=== PATIENT | female | born 1975 | race Caucasian/White ===

== ENCOUNTER → 2017-04-08 | Outpatient (CLI) | payer BC ==
--- NOTE | 2017-04-08 23:14 | MR ---
EXAMINATION TYPE: MR brain wo/w con DATE OF EXAM: 04/08/2017 COMPARISON: 08/31/2013 HISTORY: Follow up from previous abnormal MRI 08/2013, Headaches, new onset nystagmus, hyperflexia TECHNIQUE: Multiplanar, multisequence images of the brain and brainstem is performed without and with IV contras t, utilizing 15 mL intravenous MultiHance . FINDINGS: Ventricles of normal size. There is no mass effect nor midline shift. There is no sign of i ntracranial hemorrhage. Brainstem appears normal. Corpus callosum appears normal. Sella turcica is no rmal. There is no evidence of demyelinating disease. There is no pathologic enhancement. There is min imal mucosal thickening in the left maxillary sinus. IMPRESSION: Minimal left maxillary sinusitis similar to old exam. No evidence of demyelinating diseas e. Negative MR scan of the brain.
== END | disposition home or self-care (01) ==
LOC: RADMRIMAIN 18:26
PROVIDERS: ATTEND Psychiatry & Neurology Neurology
DX: H55.89 Other irregular eye movements (principal)
CPT/HCPCS: 70553; A9577

== ENCOUNTER → 2017-05-08 | Outpatient (CLI) | payer BC ==
--- NOTE | 2017-05-16 11:32 | ENG ---
ELECTRONYSTAGMOGRAM REPORT INDICATION: A 42-year-old female with dizziness of a chronic, longstanding nature, getting worse, occurring at least twice a week and lasts up to a few hours. Dizziness can be precipitated by looking up or head back position, turning the head left to right, bending over or head down position, moving the head, when in the car or driving or in large crowds. Has tinnitus in the right ear of a steady nature and pain in both ears intermittently. Denies difficulty with hearing. VNG FINDINGS: Saccade shows intact peak velocities, accuracies and latencies. Gaze with fixation shows no nystagmus in any directions of gaze. Tracking shows no breakups. Opticokinetic nystagmus shows no asymmetries. Static position testing in six different positions with eyes opened and with vision denied shows no nystagmus in any of those positions. [place]-Hallpike maneuvers are negative bilaterally. Caloric testing shows 0 unilateral calorie weakness. Directional preponderance 25% right ear, index is negative. IMPRESSION: Unremarkable VNG study. MMODL / IJN: [id number] /
== END | disposition home or self-care (01) ==
LOC: NEUROMAIN 09:02
PROVIDERS: ATTEND Psychiatry & Neurology Neurology
DX: H55.00 Unspecified nystagmus (principal)
CPT/HCPCS: 92537; 92540

== ENCOUNTER → 2018-09-05 | Day surgery (SDC) | payer BC ==
[2018-09-04 09:51] VITALS: BMI 25.0
[~2018-09-05] MED LIST: LACTATED RINGERS 1,000 ML IV SCH; LIDOCAINE 1% 20 ML VIAL (10MG/ML) FOR IV START INTRADERMA PRN; LIDOCAINE 1% INJ 10MG/ML (20 ML MDV) ONE; MIDAZOLAM 2 MG/2 ML VIAL ONE; PROPOFOL 10 MG/ML 20 ML VIAL IV ONE; fentaNYL (PF) 50 MCG/ML 2 ML AMP ONE
[2018-09-05 09:28] VITALS: RESP 16; TEMP 98.1
--- NOTE | 2018-09-05 10:03 | P.PCN ---
Date of Procedure: 09/05/18 Procedure(s) Performed: Brief history: Patient is a pleasant 43-year-old white female, scheduled for an elective upper endoscopy as well as colonoscopy as a part of evaluation of long-standing history of GERD, lower abdominal pain and chronic intermittent diarrhea for the last several years duration. Procedure performed: Esophagogastroduodenoscopy with biopsy Colonoscopy with biopsy Preoperative diagnosis: GERD Lower abdominal pain and chronic intermittent diarrhea Anesthesia: MAC Procedure: After informed consent was obtained from the patient was brought into the endoscopy unit and IV sedation was administered by anesthesia under continuous monitoring. Initially upper endoscopy was done. The Olympus GF 160 video endoscope was inserted inserted into the mouth and esophagus intubated without any difficulty and was gradually advanced into the stomach and duodenum and carefully examined. The bulb and second part of the duodenum appeared normal. Biopsies were done from the duodenum to rule out celiac disease. The scope was then withdrawn into the stomach adequately insufflated with air and upon careful examination the antrum had scattered erosions and biopsies were done from this area. The body, cardia and fundus appeared normal. The scope was then withdrawn into the esophagus. The GE junction was located at 40 cm to the incisors. small sliding Hiatal hernia noted. It appeared regular with no erythema erosions or ulcerations. Rest of the esophagus appeared normal. Patient tolerated the procedure well. At this time the patient continued to remain sedation. Initial digital rectal examination was normal. Olympus CF 160 video colonoscope was then inserted into the rectum and gradually advanced to the cecum without any difficulty. Careful examination was performed as the scope was gradually being withdrawn. The prep was excellent. The cecum, ascending colon, transverse colon, descending colon, sigmoid colon and rectum appeared normal. Retroflexion was performed in the rectum and no lesions were noted. and biopsies were done from the ascending and descending colon to rule out microscopic/collagenous colitis. Patient tolerated the procedure well. Impression: 1. Upper endoscopy revealed antral erosive gastritis and small hiatal hernia. 2. Colonoscopy was essentially within normal limits with no evidence of colitis or colorectal neoplasia. Recommendations: Findings of this examination were discussed with the patient as well as her family. She was advised to follow with the biopsy results. She'll be seen in office in 4 weeks
[2018-09-05 10:22] VITALS: BP 119/62; PULSE 77
== END ==
LOC: ORWHC2ENDO 09:01
PROVIDERS: ATTEND Internal Medicine Gastroenterology
DX: K29.50 Unspecified chronic gastritis without bleeding (principal); K25.9 Gastric ulcer, unspecified as acute or chronic, without hemorrhage or perforation; K44.9 Diaphragmatic hernia without obstruction or gangrene; K21.9 Gastro-esophageal reflux disease without esophagitis; K58.9 Irritable bowel syndrome, unspecified; F41.9 Anxiety disorder, unspecified; G43.909 Migraine, unspecified, not intractable, without status migrainosus; J45.909 Unspecified asthma, uncomplicated; Z79.51 Long term (current) use of inhaled steroids; Z79.899 Other long term (current) drug therapy; Z91.030 Bee allergy status; Z87.891 Personal history of nicotine dependence
CPT/HCPCS: 81025; 88305; 45380; 43239; J2250; J2001; J3010; J2704

== ENCOUNTER → 2018-09-08 | Outpatient (CLI) | payer BC ==
--- NOTE | 2018-09-08 09:47 | US ---
EXAMINATION TYPE: US abdomen complete DATE OF EXAM: 09/08/2018 COMPARISON: NONE CLINICAL HISTORY: R10.9 Abdominal Pain. EXAM MEASUREMENTS: Liver Length: 12.1 cm Gallbladder Wall: 0.2 cm CBD: 0.4 cm Spleen: 10.9 cm Right Kidney: 11.8 x 4.7 x 4.9 cm Left Kidney: 11.0 x 4.8 x 4.6 cm Pancreas: wnl Liver: homogeneous Gallbladder: wnl Evidence for sonographic Prabhakar's sign: No CBD: wnl Spleen: wnl Right Kidney: No hydronephrosis or masses seen Left Kidney: No hydronephrosis or masses seen Upper IVC: wnl Abd Aorta: wnl The liver is homogenous. The intrahepatic portion of the IVC and proximal abdominal aorta are within normal limits. There is no evidence of cholelithiasis. Common bile duct is unremarkable. The visu alized portions of the pancreas are homogenous. The spleen is unremarkable. Kidneys are symmetric a nd free of hydronephrosis. No renal lesions are seen. IMPRESSION: Unremarkable abdominal ultrasound. No evidence of cholelithiasis or acute cholecystitis. No hydronephrosis or nephrolithiasis.
== END ==
LOC: RADUSWWP 08:57
PROVIDERS: ATTEND Family Medicine
DX: R10.9 Unspecified abdominal pain (principal)
CPT/HCPCS: 76700

== ENCOUNTER → 2018-11-08 | Outpatient (CLI) | payer BC ==
--- NOTE | 2018-11-08 12:13 | NM ---
EXAMINATION TYPE: NM hepatobiliary w EF DATE OF EXAM: 11/08/2018 COMPARISON: Complete abdominal ultrasound September 08, 2018 HISTORY: Epigastric pain per order. Right upper quadrant pain with diminished appetite heartburn and nausea per patient. TECHNIQUE: After the intravenous administration of 5.1 mCi Tc 99m Mebrofenin hepatobiliary scintigrap hy is performed. Immediate images post injection. FINDINGS: There is satisfactory initial accumulation of tracer by the liver. The gallbladder is visualized wit hin 25 minutes. The small bowel activity is not well visualized even after 60 minutes. At one hour 8 ounces of oral ensure plus is given to mimic CCK and gallbladder ejection fraction is calculated at 81 %, not deviated from the normal range. Therefore there is no scintigraphic evidence of cystic or common bile duct obstruction to suggest acute cholecystitis . IMPRESSION: Ejection fraction is 81%, some consider this abnormal or a hyperkinetic response.
== END ==
LOC: RADNMMAIN 09:39
PROVIDERS: ATTEND Family Medicine
DX: R10.13 Epigastric pain (principal)
CPT/HCPCS: 78226; A9537

== ENCOUNTER → 2019-06-11 | Outpatient (CLI) | payer BC ==
--- NOTE | 2019-06-12 08:31 | XR ---
EXAMINATION TYPE: XR chest 2V DATE OF EXAM: 06/11/2019 COMPARISON: 09/08/2014 INDICATION: R05 TECHNIQUE: Frontal and lateral views of the chest are obtained. FINDINGS: The heart size is normal. The pulmonary vasculature is normal. The lungs are clear. IMPRESSION: 1. No acute pulmonary process.
== END | disposition home or self-care (01) ==
LOC: RADXRMAIN 17:43
PROVIDERS: ATTEND Family Medicine
DX: R05 Cough (principal)
CPT/HCPCS: 71046

== ENCOUNTER → 2020-02-10 | Outpatient (CLI) | payer BC ==
[2020-02-10 09:51] LABS: Basophils % (A) 1 %; Eosinophils # (A) 0.3 k/uL (0-0.7); Eosinophils % (A) 6 %; HCT 43.3 % (34.0-46.0); HGB 13.8 gm/dL (11.4-16.0); Lymphocytes # (A) 1.8 k/uL (1.0-4.8); Lymphocytes % (A) 31 %; MCH 30.1 pg (25.0-35.0); MCHC 31.8 g/dL (31.0-37.0); MCV 94.8 fL (80.0-100.0); Mean Platelet Volume 7.9; Monocytes # (A) 0.3 k/uL (0-1.0); Monocytes % (A) 5 %; Neutrophils # (A) 3.2 k/uL (1.3-7.7); Neutrophils % (A) 56 %; Platelet Count 221 k/uL (150-450); RBC 4.56 m/uL (3.80-5.40); WBC 5.8 k/uL (3.8-10.6)
[2020-02-10 17:18] LABS: ALT 29 U/L (8-44); AST 37 U/L (13-35); African American GFR (CKD) 129.4 (60.0-200.0); Alkaline Phosphatase 85 U/L (41-126); BUN/Creat Ratio 21.67 Ratio (12.00-20.00); C Reactive Protein <0.4 mg/dL (0.0-0.8); Calcium 9.6 mg/dL (8.7-10.3); Carbon Dioxide 28.4 mmol/L (21.6-31.8); Chloride 105 mmol/L (96-109); Glucose 93 mg/dL (70-110); Non-African American GFR(CKD) 111.6 (60.0-200.0); Potassium 4.6 mmol/L (3.5-5.5); Sodium 141 mmol/L (135-145); Total Bilirubin 0.7 mg/dL (0.3-1.2); Total Protein 6.4 g/dL (6.2-8.2)
== END | disposition home or self-care (01) ==
LOC: LABWHC1 09:27
PROVIDERS: ATTEND Family Medicine
DX: M79.7 Fibromyalgia (principal); R53.83 Other fatigue; E55.9 Vitamin D deficiency, unspecified
CPT/HCPCS: 36415; 80053; 82306; 84443; 85025; 86140

== ENCOUNTER 2021-02-26 10:19 | Emergency (ER) | payer BC ==
[2021-02-26 10:26] VITALS: RESP 18; TEMP 98.5
[2021-02-26] MEDS ORDERED: ONDANSETRON 4 MG/2 ML VIAL IVP STA (10:43)
[2021-02-26] MEDS ORDERED: SODIUM CHLORIDE 0.9% 1,000 ML IV STA (10:43)
[2021-02-26] MEDS ORDERED: KETOROLAC 15 MG/ML 1 ML VIAL IVP STA (10:43)
--- NOTE | 2021-02-26 11:01 | ED ---
General Adult HPI - General Chief complaint: Abdominal Pain Stated complaint: abd pain Time Seen by Provider: 02/26/21 10:33 Source: patient Mode of arrival: ambulatory Limitations: no limitations - History of Present Illness Initial comments: 45-year-old female with a mask medical history of asthma, hypertension, GERD presents to the emergency room for a chief complaint of abdominal pain. Patient reports yesterday she started to notice some right side pain last night. States it improved throughout the night but then this morning she noticed it as well. States it wraps around to her right mid back as well. Patient does admit to nausea but denies vomiting. Patient went to urgent care was told there was some blood in her urine and to come to the ER.Patient has no other complaints at this time including shortness of breath, chest pain, nausea or vomiting, headache, or visual changes. - Related Data Home Medications Medication Instructions Recorded Confirmed Montelukast [Singulair] 10 mg PO DAILY 03/22/02/26/21 DULoxetine HCL [Cymbalta] 60 mg PO DAILY 09/04/18 02/26/21 Albuterol Sulfate [Proair Hfa] 2 puff INHALATION RT-Q6H PRN 02/26/21 02/26/21 Budesonide [Pulmicort Flexhaler] 1 puff INHALATION RT-BID 02/26/21 02/26/21 Previous Rx's Medication Instructions Recorded HYDROcodone/APAP 5-325MG [Greenback 1 tab PO Q6HR PRN #10 tab 02/26/21 5-325] Ibuprofen [Motrin] 600 mg PO Q6HR PRN #20 tab 02/26/21 Ondansetron [Zofran ODT] 4 mg PO Q8HR PRN #15 tab 02/26/21 Tamsulosin [Flomax] 0.4 mg PO DAILY #20 cap 02/26/21 Allergies Allergy/AdvReac Type Severity Reaction Status Date / Time venom-honey bee Allergy Anaphylaxis Verified 02/26/21 12:04 [bee venom (honey bee)] Review of Systems ROS Statement: Those systems with pertinent positive or pertinent negative responses have been documented in the HPI. ROS Other: All systems not noted in ROS Statement are negative. Past Medical History Past Medical History: Asthma, GERD/Reflux, Hypertension Additional Past Medical History / Comment(s): MIGRAINE HEADACHES, History of Any Multi-Drug Resistant Organisms: None Reported Past Surgical History: Hernia Repair Additional Past Surgical History / Comment(s): LAPAROSCOPIC EXAM, UMBILICAL HERNIA REPIR Past Anesthesia/Blood Transfusion Reactions: No Reported Reaction Smoking Status: Current some day smoker Past Alcohol Use History: Rare Past Drug Use History: Marijuana - Past Family History Mother Family Medical History: No Reported History General Exam Limitations: no limitations General appearance: in no apparent distress Head exam: Present: atraumatic, normocephalic, normal inspection Eye exam: Present: normal appearance, PERRL, EOMI. Absent: scleral icterus, conjunctival injection, periorbital swelling ENT exam: Present: normal exam, mucous membranes moist Neck exam: Present: normal inspection. Absent: tenderness, meningismus, lymphadenopathy Respiratory exam: Present: normal lung sounds bilaterally. Absent: respiratory distress, wheezes, rales, rhonchi, stridor Cardiovascular Exam: Present: regular rate, normal rhythm, normal heart sounds. Absent: systolic murmur, diastolic murmur, rubs, gallop, clicks GI/Abdominal exam: Present: soft, tenderness (RUQ tenderness, no significance lo wer abdominal tenderness), normal bowel sounds. Absent: distended, guarding, rebound, rigid Back exam: Absent: CVA tenderness (R), CVA tenderness (L) Course Vital Signs 02/26/21 10:23 Temperature 98.5 F Pulse Rate 73 Respiratory 18 Rate Blood Pressure 116/74 O2 Sat by Pulse 99 Oximetry Medical Decision Making - Medical Decision Making Vitals are stable. Patient is well-appearing. CBC CMP unremarkable. Urinalysis does show red blood cells. Given patient had right upper quadrant pain radiating to the right flank gallbladder ultrasound was obtained. This showed a new moderate right-sided hydro-. No shadowing mobile gallstones or evidence for acute cholecystitis. There is new mild to moderate extrahepatic biliary dilation of uncertain significance, consider nonemergent follow-up. Patient was notified of this. CT abdomen and pelvis shows a 7 mm calculus proximal right ureter causing mild to moderate right-sided hydronephrosis. I did discuss this case with Dr. spencer. Given patient is comfortable at this time she'll be discharged home however recommend close follow-up given size of stone and if she is not able to tolerate the pain he recommends she come back for admission. - Lab Data Result diagrams: 02/26/21 10:58 02/26/21 10:58 Lab Results 02/26/21 02/26/21 02/26/21 Range/Units 10:58 10:58 10:58 WBC 7.4 (3.8-10.6) k/uL RBC 4.56 (3.80-5.40) m/uL Hgb 14.6 (11.4-16.0) gm/dL Hct 41.6 (34.0-46.0) % MCV 91.2 (80.0-100.0) fL MCH 32.1 (25.0-35.0) pg MCHC 35.2 (31.0-37.0) g/dL RDW 12.0 (11.5-15.5) % Plt Count 213 (150-450) k/uL MPV 7.6 Neutrophils % 71 % Lymphocytes % 20 % Monocytes % 4 % Eosinophils % 3 % Basophils % 0 % Neutrophils # 5.3 (1.3-7.7) k/uL Lymphocytes # 1.5 (1.0-4.8) k/uL Monocytes # 0.3 (0-1.0) k/uL Eosinophils # 0.2 (0-0.7) k/uL Basophils # 0.0 (0-0.2) k/uL Sodium 141 (137-145) mmol/L Potassium 4.3 (3.5-5.1) mmol/L Chloride 107 (98-107) mmol/L Carbon Dioxide 29 (22-30) mmol/L Anion Gap 5 mmol/L BUN 13 (7-17) mg/dL Creatinine 0.54 (0.52-1.04) mg/dL Est GFR (CKD-EPI)AfAm >90 (>60 ml/min/1.73 sqM) Est GFR (CKD-EPI)NonAf >90 (>60 ml/min/1.73 sqM) Glucose 95 (74-99) mg/dL Plasma Lactic Acid Cem (0.7-2.0) mmol/L Calcium 9.5 (8.4-10.2) mg/dL Total Bilirubin 0.7 (0.2-1.3) mg/dL AST 31 (14-36) U/L ALT 21 (4-34) U/L Alkaline Phosphatase 64 (38-126) U/L Total Protein 6.8 (6.3-8.2) g/dL Albumin 4.4 (3.5-5.0) g/dL Amylase 44 (30-110) U/L Lipase 49 (23-300) U/L Urine Color Yellow Urine Appearance Clear (Clear) Urine pH 7.0 (5.0-8.0) Ur Specific [place] 1.023 (1.001-1.035) Urine Protein Trace H (Negative) Urine Glucose (UA) Negative (Negative) Urine Ketones Negative (Negative) Urine Blood Small H (Negative) Urine Nitrite Negative (Negative) Urine Bilirubin Negative (Negative) Urine Urobilinogen <2.0 (<2.0) mg/dL Ur Leukocyte Esterase Negative (Negative) Urine RBC 36 H (0-5) /hpf Urine WBC 2 (0-5) /hpf Ur Squamous Epith Cells 1 (0-4) /hpf Urine Bacteria Rare H (None) /hpf Urine Mucus Moderate H (None) /hpf 02/26/ Range/Units 10:58 WBC (3.8-10.6) k/uL RBC (3.80-5.40) m/uL Hgb (11.4-16.0) gm/dL Hct (34.0-46.0) % MCV (80.0-100.0) fL MCH (25.0-35.0) pg MCHC (31.0-37.0) g/dL RDW (11.5-15.5) % Plt Count (150-450) k/uL MPV Neutrophils % % Lymphocytes % % Monocytes % % Eosinophils % % Basophils % % Neutrophils # (1.3-7.7) k/uL Lymphocytes # (1.0-4.8) k/uL Monocytes # (0-1.0) k/uL Eosinophils # (0-0.7) k/uL Basophils # (0-0.2) k/uL Sodium (137-145) mmol/L Potassium (3.5-5.1) mmol/L Chloride (98-107) mmol/L Carbon Dioxide (22-30) mmol/L Anion Gap mmol/L BUN (7-17) mg/dL Creatinine (0.52-1.04) mg/dL Est GFR (CKD-EPI)AfAm (>60 ml/min/1.73 sqM) Est GFR (CKD-EPI)NonAf (>60 ml/min/1.73 sqM) Glucose (74-99) mg/dL Plasma Lactic Acid Cem 0.7 (0.7-2.0) mmol/L Calcium (8.4-10.2) mg/dL Total Bilirubin (0.2-1.3) mg/dL AST (14-36) U/L ALT (4-34) U/L Alkaline Phosphatase (38-126) U/L Total Protein (6.3-8.2) g/dL Albumin (3.5-5.0) g/dL Amylase (30-110) U/L Lipase (23-300) U/L Urine Color Urine Appearance (Clear) Urine pH (5.0-8.0) Ur Specific [place] (1.001-1.035) Urine Protein (Negative) Urine Glucose (UA) (Negative) Urine Ketones (Negative) Urine Blood (Negative) Urine Nitrite (Negative) Urine Bilirubin (Negative) Urine Urobilinogen (<2.0) mg/dL Ur Leukocyte Esterase (Negative) Urine RBC (0-5) /hpf Urine WBC (0-5) /hpf Ur Squamous Epith Cells (0-4) /hpf Urine Bacteria (None) /hpf Urine Mucus (None) /hpf Disposition Clinical Impression: Kidney stone, Hematuria, Dilation of biliary tract Disposition: HOME SELF-CARE Condition: Good Instructions (If sedation given, give patient instructions): Kidney Stones (ED) Additional Instructions: Please take Motrin for pain. If pain is severe take Greenback but do not drive or operate machinery while taking this. Take Zofran as needed for nausea. Take Flomax daily. Follow up with urology. If pain is intolerable at home or you are having worsening symptoms return to the emergency room. Also, please follow-up with your doctor to review ultrasound results. Prescriptions: Tamsulosin [Flomax] 0.4 mg PO DAILY #20 cap Ibuprofen [Motrin] 600 mg PO Q6HR PRN #20 tab PRN Reason: Pain HYDROcodone/APAP 5-325MG [Green[place] 5-325] 1 tab PO Q6HR PRN #10 tab PRN Reason: Pain Ondansetron [Zofran ODT] 4 mg PO Q8HR PRN #15 tab PRN Reason: Nausea Is patient prescribed a controlled substance at d/c from ED?: Yes When asked, does pt state using other controlled substances?: No If prescribed controlled substance>3 days was MAPS reviewed?: Prescribed <3 Days If opioid is for acute pain is fill amount 7 days or less?: Yes If Rx opioid, was Start Talking consent form obtained?: Yes Referrals: Reji Chu MD [Primary Care Provider] - 1-2 days Clifford Spencer MD [STAFF PHYSICIAN] - 1-2 days Time of Disposition: 13:33
[2021-02-26 11:08] LABS: Basophils % (A) 0 %; Eosinophils # (A) 0.2 k/uL (0-0.7); Eosinophils % (A) 3 %; HCT 41.6 % (34.0-46.0); HGB 14.6 gm/dL (11.4-16.0); Lymphocytes # (A) 1.5 k/uL (1.0-4.8); Lymphocytes % (A) 20 %; MCH 32.1 pg (25.0-35.0); MCHC 35.2 g/dL (31.0-37.0); MCV 91.2 fL (80.0-100.0); Mean Platelet Volume 7.6; Monocytes # (A) 0.3 k/uL (0-1.0); Monocytes % (A) 4 %; Neutrophils # (A) 5.3 k/uL (1.3-7.7); Neutrophils % (A) 71 %; Platelet Count 213 k/uL (150-450); RBC 4.56 m/uL (3.80-5.40); WBC 7.4 k/uL (3.8-10.6)
[2021-02-26 11:20] LABS: ALT 21 U/L (4-34); AST 31 U/L (14-36); African American GFR (CKD) >90 (>60 ml/min/1.73 sqM); Albumin 4.4 g/dL (3.5-5.0); Alkaline Phosphatase 64 U/L (38-126); Amylase 44 U/L (30-110); Anion Gap 5 mmol/L; Blood Urea Nitrogen 13 mg/dL (7-17); Calcium 9.5 mg/dL (8.4-10.2); Carbon Dioxide 29 mmol/L (22-30); Chloride 107 mmol/L (98-107); Glucose 95 mg/dL (74-99); Lipase 49 U/L (23-300); Non-African American GFR(CKD) >90 (>60 ml/min/1.73 sqM); Potassium 4.3 mmol/L (3.5-5.1); Sodium 141 mmol/L (137-145); Total Bilirubin 0.7 mg/dL (0.2-1.3); Total Protein 6.8 g/dL (6.3-8.2)
[2021-02-26 11:30] LABS: Appearance,Urine Clear (Clear); Bacteria,Urine Rare /hpf; Bilirubin,Urine Negative (Negative); Blood,Urine Small (Negative); Color,Urine Yellow; Glucose,Urine (UA) Negative (Negative); Ketones,Urine Negative (Negative); Leukocyte Esterase,Urine Negative (Negative); Mucus,Urine Moderate /hpf; Nitrite,Urine Negative (Negative); Protein,Urine Trace (Negative); RBC,Urine 36 /hpf (0-5); Specific Gravity,Urine 1.023 (1.001-1.035); Squamous Epithelial Cell,Urine 1 /hpf (0-4); Urobilinogen,Urine <2.0 mg/dL (<2.0); WBC,Urine 2 /hpf (0-5)
--- NOTE | 2021-02-26 11:58 | US ---
EXAMINATION TYPE: US gallbladder DATE OF EXAM: 02/26/2021 COMPARISON: Complete abdominal ultrasound September 08, 2018 CLINICAL HISTORY: ruq pain. Abdomen pain x 1 day, N/V EXAM MEASUREMENTS: Liver Length: 15.2 cm Gallbladder Wall: 0.2 cm CBD: 0.9 cm Right Kidney: 10.5 x 5.7 x 5.7 cm Pancreas: wnl Liver: wnl Gallbladder: wnl Evidence for sonographic Prabhakar's sign: no CBD: dilated Right Kidney: Moderate hydronephrosis IMPRESSION: New moderate right-sided hydronephrosis may warrant further clinical workup. No shadowing mobile gallstones ultrasound evidence for acute cholecystitis. New Mild to moderate extra hepatic bi liary dilatation of uncertain significance given lack of significant new central intrahepatic biliary dilatation or pancreatic ductal dilatation on images saved. Consider nonemergent follow-up.
--- NOTE | 2021-02-26 12:37 | CT ---
EXAMINATION TYPE: CT abdomen pelvis wo con DATE OF EXAM: 02/26/2021 HISTORY: right flank pain, microscopic hematuria CT DLP: 570.6 mGycm. Automated Exposure Control for Dose Reduction was Utilized. TECHNIQUE: CT scan of the abdomen and pelvis is performed without oral or IV contrast. COMPARISON: NONE FINDINGS: Within the limitations of a non-contrast study, the following observations are made. LUNG BASES: No significant abnormality is appreciated. LIVER/GB: No significant abnormality is appreciated. PANCREAS: No significant abnormality is seen. SPLEEN: No significant abnormality is seen. ADRENALS: No significant abnormality is seen. KIDNEYS: No left-sided renal calculi or hydronephrosis. There is single 2 mm nonobstructing calculus right kidney midpole level coronal image 53. There is [id number] right-sided hydronephrosis due to obstructing 7 mm calculus proximal right ureter coronal image 42. Scattered right-sided pelvic ph leboliths BOWEL: Low-lying cecum into right pelvis. No suspicious small or large bowel dilatation. Mild wall th ickening at level of hepatic flexure GENITAL ORGANS: Uterus somewhat small or atrophic. LYMPH NODES: No greater than 1cm abdominal or pelvic lymph nodes are appreciated. OSSEOUS STRUCTURES: Mild to moderate disc space narrowing lumbosacral junction. Mild multilevel anter ior spurring. OTHER: No significant additional abnormality is seen. IMPRESSION: There is 7 mm calculus proximal right ureter causing [id number] right-sided hydrone phrosis.
[2021-02-26] MEDS ORDERED: MORPHINE SULFATE 4 MG/ML SYRINGE IVP STA (13:28)
[2021-02-26 14:09] VITALS: BP 105/74; PULSE 79
== END 2021-02-26 14:04 | disposition home or self-care (01) ==
LOC: EC 10:19
DX: N13.2 Hydronephrosis with renal and ureteral calculous obstruction (principal); K83.8 Other specified diseases of biliary tract; I10 Essential (primary) hypertension; J45.909 Unspecified asthma, uncomplicated; K21.9 Gastro-esophageal reflux disease without esophagitis; G43.909 Migraine, unspecified, not intractable, without status migrainosus; F12.90 Cannabis use, unspecified, uncomplicated; F17.200 Nicotine dependence, unspecified, uncomplicated; Z79.1 Long term (current) use of non-steroidal anti-inflammatories (NSAID); Z79.51 Long term (current) use of inhaled steroids; Z79.899 Other long term (current) drug therapy
CPT/HCPCS: 36415; 80053; 82150; 83605; 83690; 85025; 81001; 76705; 74176; 99284; 96374; 96375 ×2; 96361; J2270; J2405; J1885

== ENCOUNTER → 2021-03-09 | Outpatient (CLI) | payer BC ==
--- NOTE | 2021-03-09 19:56 | XR ---
EXAMINATION TYPE: XR KUB DATE OF EXAM: 03/09/2021 Comparison: CT 02/26/2021 Clinical History: 45-year-old female N20.1 calculus Findings: Nonobstructive bowel gas pattern. Scattered mild stool burden. There is a 5 mm calcification in the r ight mid abdomen at the level of the mid ureter. Pelvic phleboliths. Impression: A 5 mm mid right ureteral calculus similar to findings on the 02/26/2021 CT.
== END | disposition home or self-care (01) ==
LOC: RADXRMAIN 12:01
PROVIDERS: ATTEND Urology
DX: N20.1 Calculus of ureter (principal)
CPT/HCPCS: 74018

== ENCOUNTER → 2021-03-23 | Outpatient (CLI) | payer BC ==
--- NOTE | 2021-03-23 15:00 | XR ---
EXAMINATION TYPE: XR KUB DATE OF EXAM: 03/23/2021 COMPARISON: 03/09/2021 INDICATION: Renal calculus right-sided pain x2 weeks TECHNIQUE: Single view abdomen frontal projection FINDINGS: There is a normal bowel gas pattern. Mild fecal debris is within the colon. Psoas margins are normal. No organomegaly is present. Previous right abdomen calcification is not identified currently. Phleboliths are within the right he mipelvis IMPRESSION: 1. Nonspecific abdomen.
== END | disposition home or self-care (01) ==
LOC: RADXRMAIN 14:26
PROVIDERS: ATTEND Urology
DX: R10.9 Unspecified abdominal pain (principal)
CPT/HCPCS: 74018

== ENCOUNTER → 2022-08-04 | Outpatient (CLI) | payer BC ==
[2022-08-04 18:33] LABS: Hepatitis A Antibody IgM Nonreactive (Nonreactive); Hepatitis B Surface Antigen Nonreactive (Nonreactive)
[2022-08-04 18:34] LABS: Hepatitis C IgG Antibody Nonreactive (Nonreactive)
[2022-08-04 18:40] LABS: Ceruloplasmin 23.5 mg/dL (20.0-60.0)
[2022-08-04 22:19] LABS: Cryptosporidium Antigen Negative (Negative)
[2022-08-04 23:02] LABS: ALT 81 U/L (8-44); AST 50 U/L (13-35); Albumin 4.5 g/dL (3.8-4.9); Albumin/Globulin Ratio 2.02 (1.60-3.17); Alkaline Phosphatase 108 U/L (41-126); Bilirubin, Conjugated <0.20 mg/dL (0.20-0.40); Ferritin 55.4 ng/mL (10.0-291.0); Globulin 2.2 g/dL (1.6-3.3); Iron 83 ug/dL (50-170); Total Iron Binding Capacity 367 ug/dL (228-460); Total Protein 6.7 g/dL (6.2-8.2)
[2022-08-06 12:40] LABS: Anti-Endomysial IgA Antibody <1:10 Titer (<1:10)
[2022-08-06 14:43] LABS: Smooth Muscle Antibody 11 UNITS (<20)
== END | disposition home or self-care (01) ==
LOC: LABWHC1 10:28
PROVIDERS: ATTEND Student in an Organized Health Care Education/Training Program
DX: K83.9 Disease of biliary tract, unspecified (principal); K58.2 Mixed irritable bowel syndrome; E66.3 Overweight; R79.89 Other specified abnormal findings of blood chemistry
CPT/HCPCS: 36415; 80076; 82103; 82248; 82390; 82656; 82728; 82784; 83516; 83540; 83550; 83993; 84443; 86038; 86255; 86704; 86709; 86803; 87045; 87046; 87328; 87329; 87340

== ENCOUNTER → 2024-07-20 | Outpatient (CLI) | payer BC ==
--- NOTE | 2024-07-21 18:59 | MR ---
EXAMINATION TYPE: MR brain/orbits wo/w con DATE OF EXAM: 07/20/2024 10:17 PM COMPARISON: 08/31/2013. CLINICAL INDICATION: Female, 49 years old with history of H55.09; PHH, Nystagmus, Headaches, Tingling right side of face, Ringing in ears, Forgetfulness TECHNIQUE: Multi planar, multi sequence imaging was performed through the orbits/face. Post contrast imaging was performed after the administration of 7.5 mL Gadavist FINDINGS, ORBITS: The globes appear symmetrical. Orbital contents are intact. Signal intensity of th e optic nerves are within normal limits. The intraorbital fat appears preserved. Both lacrimal glan ds are unremarkable. The extraocular muscles appear symmetric. After administration of contrast, no a bnormal enhancement is seen. Prominent perivascular space in the right basal ganglia. FINDINGS, BRAIN: The fowler-white junctions, ventricular system, and cisterns do appear unremarkable. Diffusion-weighted imaging shows no evidence of restricted diffusion. Minimal scattered high T2 sign al in the deep white matter most pronounced in the right frontal lobe with lesion seen on prior imagi ng in 2012 and are stable. Cavernous sinus is within normal limits. After administration of contrast , no abnormal enhancement is seen within the brain. The bone marrow signal is within normal limits. Paranasal sinuses and mastoid air cells: Mild paranasal sinus mucosal thickening.. Visualized orbits: Orbital contents are intact. IMPRESSION: 1. No evidence of intraorbital mass or significant abnormality. 2. No evidence of intracranial mass nor acute/subacute CVA accident. 3. Minimal scattered Nonspecific white matter changes findings similar to 2013 no evidence for activ e demyelination. [facility], Workstation: [id number], 07/21/2024 6:57 PM
== END | disposition home or self-care (01) ==
LOC: RADMRIMAIN 21:00
PROVIDERS: ATTEND Ophthalmology
DX: H93.13 Tinnitus, bilateral (principal); H55.09 Other forms of nystagmus; R20.2 Paresthesia of skin; R51.9 Headache, unspecified
CPT/HCPCS: 70543; 70553; A9585